=== PATIENT | male | born 1995 | race Caucasian/White ===

== ENCOUNTER 2021-05-07 16:41 | Emergency (ER) | payer OTHER ==
[2021-05-08 16:47] LABS: SARS-CoV-2 PCR by NAA DETECTED (NotDetected)
== END 2021-05-07 20:15 | disposition home or self-care (01) ==
LOC: CSHERS 16:41
DX: U07.1 COVID-19 (principal)
CPT/HCPCS: 87804; 99284; U0003; U0005

== ENCOUNTER 2023-04-10 11:31 | Emergency (ER) | payer OTHER, SELFPAY ==
[2023-04-10 12:44] LABS: SARS-CoV-2 NAA Rapid Test Not Detected (NotDetected)
== END 2023-04-10 13:10 | disposition home or self-care (01) ==
LOC: CSHERS 11:31
DX: J11.1 Influenza due to unidentified influenza virus with other respiratory manifestations (principal); F17.290 Nicotine dependence, other tobacco product, uncomplicated; Z20.822 Contact with and (suspected) exposure to COVID-19
CPT/HCPCS: 99283